=== PATIENT | female | born 1980 | race American Indian/Alaskan Native ===

== ENCOUNTER 2017-04-30 19:21 | Emergency (ER) | payer MEDICAID ==
[2017-04-30 20:24] LABS: Basophils % (Auto) 0.7 % (0.0-1.8); Eosinophils % (Auto) 2.9 % (0.0-4.3); Hematocrit 37.2 % (30.3-42.9); Hemoglobin 12.6 gm/dl (10.1-14.3); Mean Corpuscular HGB Conc 34 % (30-34); Mean Corpuscular Hemoglobin 33 pg (28-32); Mean Corpuscular Volume 96 fl (79-97); Platelet Count 308 K/mm3 (140-440); Red Blood Count 3.86 M/mm3 (3.65-5.03); Red Cell Distribution Width 13.7 % (13.2-15.2); White Blood Count 12.5 K/mm3 (4.5-11.0)
[2017-04-30 20:44] LABS: Anion Gap 16 mmol/L; Blood Urea Nitrogen 9 mg/dL (7-17); Calcium 8.5 mg/dL (8.4-10.2); Carbon Dioxide 24 mmol/L (22-30); Chloride 104.5 mmol/L (98-107); Glucose 108 mg/dL (65-100); Potassium 3.7 mmol/L (3.6-5.0); Sodium 141 mmol/L (137-145)
[2017-04-30 20:46] LABS: Bilirubin,Urine NEG (Negative); Blood,Urine NEG (Negative); Ketones,Urine NEG (Negative); Leukocyte Esterase,Urine NEG (Negative); Mucus,Urine FEW /HPF; Nitrite,Urine NEG (Negative); Protein,Urine <15 mg/dL mg/dL (Negative); WBC,Urine < 1.0 /HPF (0.0-6.0)
--- NOTE | 2017-04-30 21:02 | Emergency Department Report ---
ED Female HPI - General Chief complaint: Abdominal Pain Stated complaint: VAG DISCHARGE/ODOR Time Seen by Provider: 04/30/17 21:01 Source: patient Mode of arrival: Ambulatory Limitations: No Limitations - History of Present Illness Initial comments: Patient here complaining that she thinks her warfarin gave her an STD. She is complaining of vaginal discharge that is yellow brownish would order. Complaining of lower abdominal pain. Denies any nausea vomiting or diarrhea. Denies any back pain. Denies any vaginal bleeding. Denies any fever or chills. Denies any urinary burning frequency or urgency. She says that this started 3 days ago. Special. Was 04/14/2017. She states that she caught her boyfriend cheated but he denies having any STD. Nominal pain to pelvic area cramping on and off 6 out of 10. No [id number] medication taken. Nothing make it better and nothing makes it worse. Patient requesting to be treated for STD .patient with penicillin allergy but she said when she had allergic reaction she had itching and but had taken penicillin after that and had no problems. MD Complaint: vaginal discharge, pelvic pain, possible STD Onset/Timin -: days(s) Location: suprapubic Radiation: non-radiating Severity: moderate Severity scale (0 -10): 6 Quality: cramping Consistency: intermittent Improves with: none Worsens with: none Are you Now?: No Last Menstrual Period: 04/14/17 EDC: 01/19/18 Associated Symptoms: vaginal discharge, abdominal pain. denies: vaginal bleeding, nausea/vomiting, fever/chills, headaches, loss of appetite, dysuria, hematuria, rash, seizure, weakness - Related Data Sexually active: Yes Previous Rx's Medication Instructions Recorded Last Taken Type metroNIDAZOLE [Flagyl] 500 mg PO Q12HR #14 tab 04/30/17 Unknown Rx Allergies Allergy/AdvReac Type Severity Reaction Status Date / Time Penicillins Allergy Itching Verified 04/30/17 19:54 ED Review of Systems ROS: Stated complaint: VAG DISCHARGE/ODOR Other details as noted in HPI Comment: All other systems reviewed and negative Constitutional: denies: chills, fever Eyes: denies: eye pain, vision change ENT: denies: throat pain, congestion Respiratory: no symptoms reported Cardiovascular: denies: chest pain, palpitations, edema, syncope Gastrointestinal: abdominal pain. denies: nausea, vomiting, diarrhea, constipation, hematemesis, melena, hematochezia Genitourinary: discharge. denies: urgency, dysuria, frequency, hematuria, abnormal menses, dyspareunia Musculoskeletal: denies: back pain, joint swelling, arthralgia, myalgia Skin: denies: rash Neurological: denies: headache, weakness, numbness, paresthesias, confusion, abnormal gait, vertigo Psychiatric: denies: anxiety ED Past Medical Hx - Past Medical History Previous Medical History?: No - Surgical History Past Surgical History?: Yes Additional Surgical History: LEFT HAND / TUBAL LIGATION - Family History Family history: no significant - Social History Smoking Status: Current Every Day Smoker Substance Use Type: Alcohol Other Social History: Pt is single - Medications Home Medications: Home Medications Medication Instructions Recorded Confirmed Last Taken Type metroNIDAZOLE [Flagyl] 500 mg PO Q12HR #14 tab 04/30/17 Unknown Rx ED Physical Exam - General Limitations: No Limitations General appearance: alert, in no apparent distress - Head Head exam: Present: atraumatic, normocephalic, normal inspection - Eye Eye exam: Present: normal appearance, PERRL, EOMI Pupils: Present: normal accommodation - ENT ENT exam: Present: normal exam, normal orophraynx, mucous membranes moist - Neck Neck exam: Present: normal inspection, tenderness, full ROM. Absent: meningismus, lymphadenopathy - Respiratory Respiratory exam: Present: normal lung sounds bilaterally. Absent: respiratory distress, wheezes, rales, rhonchi, stridor, chest wall tenderness, accessory muscle use, decreased breath sounds, prolonged expiratory - Cardiovascular Cardiovascular Exam: Present: regular rate, normal rhythm, normal heart sounds. Absent: systolic murmur, diastolic murmur, S3, S4 - GI/Abdominal GI/Abdominal exam: Present: soft, normal bowel sounds. Absent: distended, tenderness, guarding, rebound, rigid, organomegaly, mass, bruit, hernia - Rectal Rectal exam: Present: normal inspection - External exam: Present: normal external exam. Absent: erythema, swelling, lesions, lacerations, ecchymosis, bleeding Speculum exam: Present: vaginal discharge, cervical discharge. Absent: erythema , vaginal bleeding, foreign body, tissue, laceration Bi-manual exam: Present: normal bi-manual exam. Absent: cervical motion tendernes, adnexal tenderness, adnexal mass, uterine enlargement, uterine tenderness - Expanded Exam Expanded Female exam: Absent: vaginal laceration, tissue present in vagina, herpetic lesions, vulvar erythema, vulvar tenderness, foreign body External exam: Present: normal Amniotic fluid: Present: none Speculum exam: Present: cervical OS closed, vaginal discharge. Absent: vaginal bleeding - Extremities Exam Extremities exam: Present: normal inspection, full ROM, normal capillary refill. Absent: tenderness, pedal edema, joint swelling, calf tenderness - Back Exam Back exam: Present: normal inspection, full ROM. Absent: tenderness, CVA tenderness (R), CVA tenderness (L), muscle spasm, paraspinal tenderness, vertebral tenderness, rash noted - Neurological Exam Neurological exam: Present: alert, oriented X3, normal gait, reflexes normal. Absent: motor sensory deficit - Psychiatric Psychiatric exam: Present: normal affect, normal mood - Skin Skin exam: Present: warm, dry, intact, normal color. Absent: rash ED Course Vital Signs 04/30/17 19:54 Temperature 99.0 F Pulse Rate 80 Respiratory 20 Rate Blood Pressure 144/92 O2 Sat by Pulse 99 Oximetry - Reevaluation(s) Reevaluation #1: 04/30/17 22:34 She received Rocephin 50 mg IM and emergency room and is azithromycin 1 g by mouth to cover gonorrhea and chlamydia. Gonorrhea and chlamydia test is pending. Wet prep positive for BV and negative for trichomoniasis and yeast infection. This was discussed with patient.. ED Medical Decision Making - Lab Data Result diagrams: 04/30/17 20:13 04/30/17 20:13 Lab Results 04/30/17 04/30/17 04/30/17 Range/Units 20:13 20:13 20:13 WBC 12.5 H (4.5-11.0) K/mm3 RBC 3.86 (3.65-5.03) M/mm3 Hgb 12.6 (10.1-14.3) gm/dl Hct 37.2 (30.3-42.9) % MCV 96 (79-97) fl MCH 33 H (28-32) pg MCHC 34 (30-34) % RDW 13.7 (13.2-15.2) % Plt Count 308 (140-440) K/mm3 Lymph % (Auto) 35.6 H (13.4-35.0) % [place] % (Auto) 10.5 H (0.0-7.3) % Eos % (Auto) 2.9 (0.0-4.3) % Baso % (Auto) 0.7 (0.0-1.8) % Lymph # 4.4 (1.2-5.4) K/mm3 [place] # 1.3 H (0.0-0.8) K/mm3 Eos # 0.4 (0.0-0.4) K/mm3 Baso # 0.1 (0.0-0.1) K/mm3 Seg Neutrophils % 50.3 (40.0-70.0) % Seg Neutrophils # 6.3 (1.8-7.7) K/mm3 Sodium 141 (137-145) mmol/L Potassium 3.7 (3.6-5.0) mmol/L Chloride 104.5 (98-107) mmol/L Carbon Dioxide 24 (22-30) mmol/L Anion Gap 16 mmol/L BUN 9 (7-17) mg/dL Creatinine 0.5 L (0.7-1.2) mg/dL Estimated GFR > 60 ml/min BUN/Creatinine Ratio 18.00 % Glucose 108 H (65-100) mg/dL Calcium 8.5 (8.4-10.2) mg/dL HCG, Qual Negative (Negative) Urine Color (Yellow) Urine Turbidity (Clear) Urine pH (5.0-7.0) Ur Specific [place] (1.003-1.030) Urine Protein (Negative) mg/dL Urine Glucose (UA) (Negative) mg/dL Urine Ketones (Negative) mg/dL Urine Blood (Negative) Urine Nitrite (Negative) Urine Bilirubin (Negative) Urine Urobilinogen (<2.0) mg/dL Ur Leukocyte Esterase (Negative) Urine WBC (Auto) (0.0-6.0) /HPF Urine RBC (Auto) (0.0-6.0) /HPF U Epithel Cells (Auto) (0-13.0) /HPF Calcium Oxalate Crystal Urine Mucus /HPF 04/30/17 Range/Units 20:25 WBC (4.5-11.0) K/mm3 RBC (3.65-5.03) M/mm3 Hgb (10.1-14.3) gm/dl Hct (30.3-42.9) % MCV (79-97) fl MCH (28-32) pg MCHC (30-34) % RDW (13.2-15.2) % Plt Count (140-440) K/mm3 Lymph % (Auto) (13.4-35.0) % [place] % (Auto) (0.0-7.3) % Eos % (Auto) (0.0-4.3) % Baso % (Auto) (0.0-1.8) % Lymph # (1.2-5.4) K/mm3 [place] # (0.0-0.8) K/mm3 Eos # (0.0-0.4) K/mm3 Baso # (0.0-0.1) K/mm3 Seg Neutrophils % (40.0-70.0) % Seg Neutrophils # (1.8-7.7) K/mm3 Sodium (137-145) mmol/L Potassium (3.6-5.0) mmol/L Chloride (98-107) mmol/L Carbon Dioxide (22-30) mmol/L Anion Gap mmol/L BUN (7-17) mg/dL Creatinine (0.7-1.2) mg/dL Estimated GFR ml/min BUN/Creatinine Ratio % Glucose (65-100) mg/dL Calcium (8.4-10.2) mg/dL HCG, Qual (Negative) Urine Color Yellow (Yellow) Urine Turbidity Clear (Clear) Urine pH 5.0 (5.0-7.0) Ur Specific [place] 1.030 (1.003-1.030) Urine Protein <15 mg/dl (Negative) mg/dL Urine Glucose (UA) Neg (Negative) mg/dL Urine Ketones Neg (Negative) mg/dL Urine Blood Neg (Negative) Urine Nitrite Neg (Negative) Urine Bilirubin Neg (Negative) Urine Urobilinogen 2.0 (<2.0) mg/dL Ur Leukocyte Esterase Neg (Negative) Urine WBC (Auto) < 1.0 (0.0-6.0) /HPF Urine RBC (Auto) 1.0 (0.0-6.0) /HPF U Epithel Cells (Auto) 2.0 (0-13.0) /HPF Calcium Oxalate Crystal 3+ Urine Mucus Few /HPF wet Prep positive BV, negative Trichomonas and negative yeast cells Gonorrhea and chlamydia test is pending - Medical Decision Making ED course: Sent here reporting abnormal vaginal discharge and requests STD testing and treatment. She caught her boyfriend she then and he told her that he was not having any symptoms that she started having discharge that has a bad odor. He was mild elevation in white count otherwise stable, BMP is stable, wet prep positive for bacterial vaginosis and negative for Trichomonas and yeast cell. Urinalysis negative for infection. Bimanual exam without any CMT or adnexal tenderness. Pelvic exam with malodorous vaginal discharge otherwise normal. Abdominal exam is normal. Discussed with patient that she has bacterial vaginosis and will be treated with Flagyl. I also discussed with her that I'll treat her with Rocephin for gonorrhea and azithromycin for chlamydia and her gonorrhea and chlamydia test takes approximately 5 days ago they will call her results. test was negative. Patient was treated with Rocephin 250 mg IM and azithromycin 1 g by mouth with any adverse reaction. She was understanding the discharge diagnosis and treatment plan and she was instructed that she is to follow-up with her [employer] [facility] or if she does not have one to follow-up with [facility] for repeat STD tested in 7- 10 days. Education STD and safe sex. Patient douches so I told her to avoid dilution as this can cause bacterial vaginosis Laboratory: See lab section for results of lab tests. Assessment/plan 1. Pelvic pain 2. Abnormal vaginal discharge 3. Bacterial vaginosis 4 concern for STD with female without diagnosis-treated for gonorrhea and chlamydia in 5. Leukocytosis Follow-up with your [facility] or [facility] for repeat STD testing in 7-10 days. She given prescription with explanation for Flagyl. She was instructed not to drink all call while in Flagyl as this can react negatively with medication and cause her to have nausea and vomiting. Critical care attestation.: If time is entered above; I have spent that time in minutes in the direct care of this critically ill patient, excluding procedure time. ED Disposition Clinical Impression: Pelvic pain, Abnormal urogenital discharge, Concern about STD in female without diagnosis, Bacterial vaginosis Leukocytosis Qualifiers: Leukocytosis type: unspecified Qualified Code(s): D72.829 - Elevated white blood cell count, unspecified Disposition: DC-01 TO HOME OR SELFCARE Is pt being admited?: No Does the pt Need Aspirin: No Condition: Stable Instructions: Abdominal Pain (ED), Bacterial Vaginosis (ED), Leukocytosis (ED) , Safe Sex (ED), Sexually Transmitted Diseases (ED) Additional Instructions: Please practice safe sex Refrain from having sexual activity for 2 weeks Follow up with OBGYN or Health department for repeat std test in 7-10 days refrain form drinking alcohol for 2 weeks. Prescriptions: metroNIDAZOLE [Flagyl] 500 mg PO Q12HR #14 tab Referrals: LONNIE WIGGINS MD [Staff Physician] - 7-10 days [facility] [Outside] - 7-10 days Forms: STI Treatment and Prevention, Accompanied Note, Work/School Release Form (ED)
[2017-04-30] MEDS ORDERED: XYLOCAINE 1% MPF 5 mL INFILTRATI ONE (22:25)
[2017-04-30] MEDS ORDERED: ROCEPHIN IM ONE (22:25)
[2017-04-30] MEDS ORDERED: ZITHROMAX PO ONE (22:25)
[2017-04-30 23:03] VITALS: BP 139/88
== END 2017-04-30 23:03 | disposition home or self-care (01) ==
LOC: ED 19:21
DX: N89.8 Other specified noninflammatory disorders of vagina (principal); R10.2 Pelvic and perineal pain; D72.829 Elevated white blood cell count, unspecified; N76.0 Acute vaginitis; F17.200 Nicotine dependence, unspecified, uncomplicated; Z88.0 Allergy status to penicillin
CPT/HCPCS: 36415; 80048; 81001; 84703; 85025; 87210; 87591; 96372; 99284; J0696

== ENCOUNTER 2017-08-30 04:00 | Inpatient (IN) | payer MEDICAID ==
[2017-08-30] MEDS ORDERED: ASPIRIN PO ONE ×2 (05:12→12:54)
[2017-08-30 05:54] LABS: Basophils # (Auto) 0.1 K/mm3 (0.0-0.1); Basophils % (Auto) 0.7 % (0.0-1.8); Eosinophils # (Auto) 0.4 K/mm3 (0.0-0.4); Hematocrit 37.3 % (30.3-42.9); Hemoglobin 12.6 gm/dl (10.1-14.3); Lymphocytes # (Auto) 2.9 K/mm3 (1.2-5.4); Lymphocytes % (Auto) 23.7 % (13.4-35.0); Mean Corpuscular HGB Conc 34 % (30-34); Mean Corpuscular Hemoglobin 33 pg (28-32); Mean Corpuscular Volume 98 fl (79-97); Monocytes # (Auto) 1.3 K/mm3 (0.0-0.8); Monocytes % (Auto) 10.7 % (0.0-7.3); Platelet Count 282 K/mm3 (140-440); Red Blood Count 3.79 M/mm3 (3.65-5.03); Red Cell Distribution Width 13.4 % (13.2-15.2)
[2017-08-30 06:19] LABS: BUN/Creatinine Ratio 20; Blood Urea Nitrogen 12 mg/dL (7-17); Hemolysis Index 8
[2017-08-30 07:36] LABS: Bilirubin,Urine NEG (Negative); Blood,Urine NEG (Negative); Color,Urine Yellow (Yellow); Mucus,Urine FEW /HPF; Nitrite,Urine NEG (Negative); Protein,Urine <15 mg/dL mg/dL (Negative); Urobilinogen,Urine < 2.0 mg/dL (<2.0)
[2017-08-30] MEDS ORDERED: NACL ONE (11:43)
--- NOTE | 2017-08-30 11:45 | Emergency Department Report ---
HPI - General Chief Complaint: Chest Pain Time Seen by Provider: 08/30/17 11:23 - HPI HPI: Room 6 The patient is a 37-year-old female presenting with chief complaint of chest pain. The patient states yesterday she began "not feeling good" which includes sore throat, ears popping and right-sided chest pain. Patient describes his chest pain is sharp and feeling as though something is poking her. Patient does admit to pleurisy. Patient admits to shortness of breath, nausea/vomiting and diaphoresis. The patient states she developed diarrhea this morning. Patient admits to fever 101F. Patient says she has had a cough that is nonproductive for one day. The patient states she's never had a stress test or cardiac catheterization Location: Chest, see above Duration: 2 days Quality: Poking Severity: Moderate Modifying factors: [see above] Context: [see above] Mode of transportation: Unknown ED Past Medical Hx - Past Medical History Previous Medical History?: No - Surgical History Past Surgical History?: Yes Additional Surgical History: LEFT HAND / TUBAL LIGATION - Family History Family history: no significant - Social History Smoking Status: Current Some Day Smoker (1/3 pack per day) Substance Use Type: None (denies illicit drug use), Alcohol (occasional) - Medications Home Medications: Home Medications Medication Instructions Recorded Confirmed Last Taken Type metroNIDAZOLE [Flagyl] 500 mg PO Q12HR #14 tab 04/30/17 Unknown Rx ED Review of Systems ROS: Stated complaint: CHEST PAIN Other details as noted in HPI Constitutional: diaphoresis, fever ENT: ear pain Respiratory: cough, shortness of breath Cardiovascular: chest pain Gastrointestinal: nausea, vomiting Physical Exam - Physical Exam Vital Signs: Vital Signs 08/30/17 08/30/17 08/30/17 05:08 11:03 11:23 Temperature 98.4 F 98.4 F Pulse Rate 89 86 Respiratory 18 20 16 Rate Blood Pressure 120/79 136/80 Blood Pressure [Left] O2 Sat by Pulse 100 99 Oximetry 08/30/17 08/30/17 11:25 11:26 Temperature Pulse Rate 91 H 91 H Respiratory 16 Rate Blood Pressure Blood Pressure 124/71 [Left] O2 Sat by Pulse 98 Oximetry Physical Exam: GENERAL: The patient is well-developed well-nourished female lying on stretcher not appearing to be in acute distress. [] HEENT: Normocephalic. Atraumatic. Extraocular motions are intact. Patient has moist mucous membranes. Oropharynx clear. Left TM margin slightly erythematous. Right TM clear NECK: Supple. Trachea midline CHEST/LUNGS: Clear to auscultation. There is no respiratory distress noted. HEART/CARDIOVASCULAR: Regular. There is no tachycardia. There is no gallop rub or murmur. ABDOMEN: Abdomen is soft, nontender. Patient has normal bowel sounds. There is no abdominal distention. SKIN: There is no rash. There is no edema. There is no diaphoresis. NEURO: The patient is awake, alert, and oriented. The patient is cooperative. The patient has normal speech MUSCULOSKELETAL: There is no evidence of acute injury. ED Course Vital Signs 08/30/17 08/30/17 08/30/17 05:08 11:03 11:23 Temperature 98.4 F 98.4 F Pulse Rate 89 86 Respiratory 18 20 16 Rate Blood Pressure 120/79 136/80 Blood Pressure [Left] O2 Sat by Pulse 100 99 Oximetry 08/30/17 08/30/17 11:25 11:26 Temperature Pulse Rate 91 H 91 H Respiratory 16 Rate Blood Pressure Blood Pressure 124/71 [Left] O2 Sat by Pulse 98 Oximetry ED Medical Decision Making - Lab Data Result diagrams: 08/30/17 05:21 08/30/17 05:21 Laboratory Tests 08/30/17 08/30/17 08/30/17 05:21 05:21 05:21 WBC 12.2 H RBC 3.79 Hgb 12.6 Hct 37.3 MCV 98 H MCH 33 H MCHC 34 RDW 13.4 Plt Count 282 Lymph % (Auto) 23.7 [place] % (Auto) 10.7 H Eos % (Auto) 3.0 Baso % (Auto) 0.7 Lymph # 2.9 [place] # 1.3 H Eos # 0.4 Baso # 0.1 Seg Neutrophils % 61.9 Seg Neutrophils # 7.6 Sodium 140 Potassium 4.5 Chloride 104.7 Carbon Dioxide 22 Anion Gap 18 BUN 12 Creatinine 0.6 L Estimated GFR > 60 BUN/Creatinine Ratio 20 Glucose 98 Calcium 9.0 Troponin T < 0.010 HCG, Qual Negative Urine Color Urine Turbidity Urine pH Ur Specific [place] Urine Protein Urine Glucose (UA) Urine Ketones Urine Blood Urine Nitrite Urine Bilirubin Urine Urobilinogen Ur Leukocyte Esterase Urine WBC (Auto) Urine RBC (Auto) U Epithel Cells (Auto) Urine Mucus 08/30/17 08/30/17 08/30/17 07:54 11:02 Unknown WBC RBC Hgb Hct MCV MCH MCHC RDW Plt Count Lymph % (Auto) [place] % (Auto) Eos % (Auto) Baso % (Auto) Lymph # [place] # Eos # Baso # Seg Neutrophils % Seg Neutrophils # Sodium Potassium Chloride Carbon Dioxide Anion Gap BUN Creatinine Estimated GFR BUN/Creatinine Ratio Glucose Calcium Troponin T < 0.010 < 0.010 HCG, Qual Urine Color Yellow Urine Turbidity Clear Urine pH 6.0 Ur Specific [place] 1.027 Urine Protein <15 mg/dl Urine Glucose (UA) Neg Urine Ketones Neg Urine Blood Neg Urine Nitrite Neg Urine Bilirubin Neg Urine Urobilinogen < 2.0 Ur Leukocyte Esterase Neg Urine WBC (Auto) 2.0 Urine RBC (Auto) 2.0 U Epithel Cells (Auto) 3.0 Urine Mucus Few - EKG Data -: EKG Interpreted by Me EKG shows normal: sinus rhythm Rate: normal - EKG Data When compared to previous EKG there are: previous EKG unavailable Interpretation: nonspecific ST-T wave [place] (T-wave inversion in lead 3 and V2) - Radiology Data Radiology results: report reviewed (CT chest), image reviewed (CT chest) CTA chest: History: Pleurisy, shortness of breath. Findings: No evidence of aneurysm or pulmonary embolism. No mediastinal mass or adenopathy. No pleural or pericardial effusion. Normal lung parenchyma. Impression: No evidence of pulmonary embolism. No acute changes. Transcribed By: PTP Dictated By: CELESTINO SYED MD Electronically Authenticated By: CELESTINO SYED MD Signed Date/Time: 08/30/171214 DD/ 13 TD/TT: 08/30/171214 - Differential Diagnosis pneumonia, PE, ACS, pericarditis Critical care attestation.: If time is entered above; I have spent that time in minutes in the direct care of this critically ill patient, excluding procedure time. ED Disposition Clinical Impression: Chest pain Disposition: DC-09 OP ADMIT IP TO THIS HOSP Is pt being admited?: Yes Does the pt Need Aspirin: Yes Condition: Fair Instructions: Chest Pain (ED) Referrals: NNEKA RICHARDSON MD [Primary Care Provider] - 3-5 Days Time of Disposition: 12:57 (hospitalist paged (Dr Jerome))
--- NOTE | 2017-08-30 12:32 | Cat Scan Report ---
CTA chest: History: Pleurisy, shortness of breath. Findings: No evidence of aneurysm or pulmonary embolism. No mediastinal mass or adenopathy. No pleural or pericardial effusion. Normal lung parenchyma. Impression: No evidence of pulmonary embolism. No acute changes.
[2017-08-30] MEDS ORDERED: MORPHINE IV ONE (12:54)
[2017-08-30] MEDS ORDERED: NITRO-BID 2% TP ONE (12:54)
[2017-08-30] MEDS ORDERED: ZOFRAN IV ONE (12:54)
[2017-08-30] MEDS ORDERED: TYLENOL PO ONE (15:47)
[2017-08-30] MEDS ORDERED: TYLENOL ONE (15:50)
[2017-08-30] MEDS ORDERED: MILK OF MAGNESIA PO PRN (17:59)
[2017-08-30] MEDS ORDERED: ZOFRAN IV PRN (17:59)
[2017-08-30] MEDS ORDERED: DULCOLAX PR PRN (17:59)
[2017-08-30] MEDS ORDERED: TYLENOL PO PRN (17:59)
--- NOTE | 2017-08-30 17:59 | History and Physical Report ---
History of Present Illness Date of examination: 08/30/17 Date of admission: 08/30/17 Chief complaint: CC: L side Chest pain Cough 3 days History of present illness: [place]: The patient is a 37-year-old female presenting with chief complaint of chest pain. The patient states yesterday she began "not feeling good" which includes sore throat, ears popping and right-sided chest pain. Patient describes her chest pain as sharp and feeling as though something is poking her. Chest pain not radiating.No Diaphoresis/palpitations. Patient admits to shortness of breath, nausea/vomiting and diaphoresis. The patient states she developed diarrhea this morning. Patient admits to fever 101F. Patient says she has had a cough that is nonproductive for one day. The patient states she's never had a stress test or cardiac catheterization Past Medical History Previous Medical History?: No - Surgical History Past Surgical History?: Yes Additional Surgical History: LEFT HAND / TUBAL LIGATION - Family History Family history: no significant - Social History Smoking Status: Current Some Day Smoker (1/3 pack per day) Substance Use Type: None (denies illicit drug use), Alcohol (occasional) - Medications Home Medications: Home Medications Medication Instructions Recorded Confirmed Last Taken Type metroNIDAZOLE [Flagyl] 500 mg PO Q12HR #14 tab 04/30/17 Unknown Rx Review of Systems Stated complaint: CHEST PAIN Other details as noted in HPI Constitutional: diaphoresis, fever ENT: ear pain Respiratory: cough, shortness of breath Cardiovascular: chest pain Gastrointestinal: nausea, vomiting Medications and Allergies Allergies Allergy/AdvReac Type Severity Reaction Status Date / Time Penicillins Allergy Itching Verified 04/30/17 19:54 Home Medications Medication Instructions Recorded Confirmed Last Taken Type metroNIDAZOLE [Flagyl] 500 mg PO Q12HR #14 tab 04/30/17 Unknown Rx Exam - Constitutional Vitals: Temp Pulse Resp BP Pulse Ox 98.4 F 80 12 129/86 100 08/30/17 11:03 08/30/17 13:32 08/30/17 13:01 08/30/17 13:32 08/30/17 13:01 General appearance: Present: no acute distress, well-nourished - EENT Eyes: Present: PERRL ENT: hearing intact, clear oral mucosa - Neck Neck: Present: supple, normal ROM - Respiratory Respiratory effort: normal Respiratory: bilateral: CTA - Cardiovascular Heart rate: 80 Rhythm: regular Heart Sounds: Present: S1 & S2. Absent: rub, click - Extremities Extremities: no ischemia, pulses intact, pulses symmetrical, No edema Peripheral Pulses: within normal limits - Abdominal General gastrointestinal: Present: soft, non-tender, non-distended, normal bowel sounds Female genitourinary: Present: normal - Rectal Rectal Exam: deferred - Integumentary Integumentary: Present: clear, warm, dry - Musculoskeletal Musculoskeletal: gait normal, strength equal bilaterally - Psychiatric Psychiatric: appropriate mood/affect, intact judgment & insight - Neurologic Neurologic: CNII-XII intact, moves all extremities - Allied Health Allied health notes reviewed: nursing, case management Results - Labs CBC & Chem 7: 08/30/17 05:21 08/30/17 05:21 Labs: Laboratory Last Values WBC 12.2 K/mm3 (4.5-11.0) H 08/30/17 05:21 RBC 3.79 M/mm3 (3.65-5.03) 08/30/17 05:21 Hgb 12.6 gm/dl (10.1-14.3) 08/30/17 05:21 Hct 37.3 % (30.3-42.9) 08/30/17 05:21 MCV 98 fl (79-97) H 08/30/17 05:21 MCH 33 pg (28-32) H 08/30/17 05:21 MCHC 34 % (30-34) 08/30/17 05:21 RDW 13.4 % (13.2-15.2) 08/30/17 05:21 Plt Count 282 K/mm3 (140-440) 08/30/17 05:21 Lymph % (Auto) 23.7 % (13.4-35.0) 08/30/17 05:21 [place] % (Auto) 10.7 % (0.0-7.3) H 08/30/17 05:21 Eos % (Auto) 3.0 % (0.0-4.3) 08/30/17 05:21 Baso % (Auto) 0.7 % (0.0-1.8) 08/30/17 05:21 Lymph # 2.9 K/mm3 (1.2-5.4) 08/30/17 05:21 [place] # 1.3 K/mm3 (0.0-0.8) H 08/30/17 05:21 Eos # 0.4 K/mm3 (0.0-0.4) 08/30/17 05:21 Baso # 0.1 K/mm3 (0.0-0.1) 08/30/17 05:21 Seg Neutrophils % 61.9 % (40.0-70.0) 08/30/17 05:21 Seg Neutrophils # 7.6 K/mm3 (1.8-7.7) 08/30/17 05:21 Sodium 140 mmol/L (137-145) 08/30/17 05:21 Potassium 4.5 mmol/L (3.6-5.0) 08/30/17 05:21 Chloride 104.7 mmol/L (98-107) 08/30/17 05:21 Carbon Dioxide 22 mmol/L (22-30) 08/30/17 05:21 Anion Gap 18 mmol/L 08/30/17 05:21 BUN 12 mg/dL (7-17) 08/30/17 05:21 Creatinine 0.6 mg/dL (0.7-1.2) L 08/30/17 05:21 Estimated GFR > 60 ml/min 08/30/17 05:21 BUN/Creatinine Ratio 20 % 08/30/17 05:21 Glucose 98 mg/dL (65-100) 08/30/17 05:21 Calcium 9.0 mg/dL (8.4-10.2) 08/30/17 05:21 Troponin T < 0.010 ng/mL (0.00-0.029) 08/30/17 11:02 HCG, Qual Negative (Negative) 08/30/17 05:21 Urine Color Yellow (Yellow) 08/30/17 Unknown Urine Turbidity Clear (Clear) 08/30/17 Unknown Urine pH 6.0 (5.0-7.0) 08/30/17 Unknown Ur Specific [place] 1.027 (1.003-1.030) 08/30/17 Unknown Urine Protein <15 mg/dl mg/dL (Negative) 08/30/17 Unknown Urine Glucose (UA) Neg mg/dL (Negative) 08/30/17 Unknown Urine Ketones Neg mg/dL (Negative) 08/30/17 Unknown Urine Blood Neg (Negative) 08/30/17 Unknown Urine Nitrite Neg (Negative) 08/30/17 Unknown Urine Bilirubin Neg (Negative) 08/30/17 Unknown Urine Urobilinogen < 2.0 mg/dL (<2.0) 08/30/17 Unknown Ur Leukocyte Esterase Neg (Negative) 08/30/17 Unknown Urine WBC (Auto) 2.0 /HPF (0.0-6.0) 08/30/17 Unknown Urine RBC (Auto) 2.0 /HPF (0.0-6.0) 08/30/17 Unknown U Epithel Cells (Auto) 3.0 /HPF (0-13.0) 08/30/17 Unknown Urine Mucus Few /HPF 08/30/17 Unknown - Imaging and Cardiology EKG: report reviewed Chest x-ray: report reviewed Assessment and Plan Advance Directives: Yes (FC) VTE prophylaxis?: Chemical Plan of care discussed with patient/family: Yes - Patient Problems (1) Chest pain Current Visit: Yes Status: Acute Qualifiers: Chest pain type: unspecified Qualified Code(s): R07.9 - Chest pain, unspecified Plan to address problem: Chest pain w/u.Serial cardiac enzymes and Lexiscan in Am DDX of reflux esophagitis /Costochondritis to be considered (2) Pneumonia Current Visit: Yes Status: Acute Qualifiers: Lung location: unspecified part of lung Plan to address problem: Clinical picture suggestive of Early Pneumonia. Started on IV Levaquin (3) Obesity Current Visit: Yes Status: Chronic Qualifiers: Obesity type: due to excess calories Body mass index: BMI 40.0-44.9 Plan to address problem: Counselled (4) DVT prophylaxis Current Visit: Yes Status: Acute Plan to address problem: on Lovenoxc
[2017-08-30 19:06] LABS: Creatine Kinase MB 1.5 ng/mL (0.0-4.0)
[2017-08-30] MEDS ORDERED: NACL 0.9% 1000 ML 1,000 ML IV SCH (21:30)
[2017-08-30] MEDS: AMBIEN PO PRN (23:50)
[2017-08-30] MEDS: PERCOCET 5/325 PO PRN (23:50)
[2017-08-31 01:48] LABS: Creatine Kinase MB 1.4 ng/mL (0.0-4.0)
[2017-08-31 06:16] LABS: Basophils % (Auto) 0.4 % (0.0-1.8); Eosinophils # (Auto) 0.4 K/mm3 (0.0-0.4); Eosinophils % (Auto) 3.7 % (0.0-4.3); Hemoglobin 12.2 gm/dl (10.1-14.3); Lymphocytes # (Auto) 2.6 K/mm3 (1.2-5.4); Lymphocytes % (Auto) 24.8 % (13.4-35.0); Mean Corpuscular HGB Conc 34 % (30-34); Mean Corpuscular Hemoglobin 33 pg (28-32); Mean Corpuscular Volume 98 fl (79-97); Monocytes # (Auto) 1.1 K/mm3 (0.0-0.8); Monocytes % (Auto) 10.5 % (0.0-7.3); Platelet Count 279 K/mm3 (140-440); Red Blood Count 3.69 M/mm3 (3.65-5.03); Red Cell Distribution Width 13.2 % (13.2-15.2)
[2017-08-31 06:33] LABS: Alanine Aminotransferase 10 units/L (7-56); Albumin 3.2 g/dL (3.9-5); BUN/Creatinine Ratio 17; Blood Urea Nitrogen 10 mg/dL (7-17); Calcium 8.1 mg/dL (8.4-10.2); Hemolysis Index 5
[2017-08-31 06:34] LABS: Creatine Kinase MB 1.3 ng/mL (0.0-4.0)
[2017-08-31] MEDS: LEVAQUIN 750MG/150ML 750 MG/150 ML BAG IV SCH (08:25)
[2017-08-31] MEDS: PERCOCET 5/325 PO PRN ×2 (08:41→19:48)
[2017-08-31] MEDS: LOVENOX SUB-Q SCH (11:00)
[2017-08-31] MEDS ORDERED: MORPHINE IV ONE (13:55)
--- NOTE | 2017-08-31 14:19 | Discharge Summary ---
Providers - Providers Date of Admission: 08/30/17 18:30 Date of discharge: 09/01/17 Attending physician: BERNY TRUONG MD Primary care physician: NNEKA RICHARDSON Hospitalization Reason for admission: Chest pain, SIRS Condition: Stable Pertinent studies: Stress test negative for ischemia CTA negative for PE or any acute changes Hospital course: The patient is a 37-year-old female presenting with chief complaint of chest pain. The patient states yesterday she began "not feeling good" which includes sore throat, ears popping and right-sided chest pain. Patient describes her chest pain as sharp and feeling as though something is poking her. Chest pain not radiating.No Diaphoresis/palpitations. Patient admits to shortness of breath, nausea/vomiting and diaphoresis. The patient states she developed diarrhea this morning. Patient admits to fever 101F. Patient says she has had a cough that is nonproductive for one day. The patient states she's never had a stress test or cardiac catheterization. Patient was admitted to the floor and initially she was treated with IV antibiotic and pain control. Stress test was done and negative for ischemia. CTA was done and negative for PE or an acute changes. Patient's chest pain subsided. Patient was hemodynamically stable at the time of discharge. patient discharged home with the advice to have follow up with PCP. Disposition: - TO HOME OR SELFCARE Time spent for discharge: 31 minutes - Discharge Diagnoses (1) Pneumonitis Status: Acute (2) Chest pain Status: Acute Qualifiers: Chest pain type: unspecified Qualified Code(s): R07.9 - Chest pain, unspecified (3) Obesity Status: Chronic Qualifiers: Obesity type: due to excess calories Body mass index: BMI 40.0-44.9 Core Measure Documentation - Palliative Care Palliative Care/ Comfort Measures: Not Applicable - Core Measures Any of the following diagnoses?: none Exam - Physical Exam Narrative exam: Not in cardiopulmonary distress. The patient appeared well nourished and normally developed. Vital signs as documented. Head exam is unremarkable. No scleral icterus . Neck is without jugular venous distension, thyromegaly, or carotid bruits. Lungs are clear to auscultation. Cardiac exam reveals regular rate and Rhythm. First and second heart sounds normal. No murmurs, rubs or gallops. Abdominal exam reveals normal bowel sounds, no masses, no organomegaly and no aortic enlargement. Extremities are nonedematous and both femoral and pedal pulses are normal. GAMEMASTER: Alert and oriented 3. No focal weakness. - Constitutional Vitals: Temp Pulse Resp BP Pulse Ox 99.3 F 97 H 18 114/73 96 08/31/17 08:58 08/31/17 08:58 08/31/17 08:58 08/31/17 08:58 08/31/17 08:58 Plan Activity: no restrictions Weight Bearing Status: Full Weight Bearing Diet: low cholesterol Follow up with: NNEKA RICHARDSON MD [Primary Care Provider] - 7 Days Forms: Work/School Release Form
--- NOTE | 2017-08-31 16:59 | Progress Note ---
Assessment and Plan Assessment and plan: 37-year-old -[place] female with past medical history significant for obesity, presented to the emergency department with complaints of not feeling well, fever, cough, sore throat and chest pain. Chest pain - Cardiac enzymes are negative, EKG no STEMI - Stress test was ordered and will be done tomorrow pneumonitis - Patient is on Levaquin DVT prophylaxis Disposition - Possible discharge tomorrow after stress test. - Patient Problems (1) Pneumonitis Current Visit: Yes Status: Acute (2) Chest pain Current Visit: Yes Status: Acute Qualifiers: Chest pain type: unspecified Qualified Code(s): R07.9 - Chest pain, unspecified (3) Obesity Current Visit: Yes Status: Chronic Qualifiers: Obesity type: due to excess calories Body mass index: BMI 40.0-44.9 History Interval history: Patient was seen and evaluated, she is still complaining chest pain. Hospitalist Physical - Physical exam Narrative exam: Not in cardiopulmonary distress. The patient appeared well nourished and normally developed. Vital signs as documented. Head exam is unremarkable. No scleral icterus . Neck is without jugular venous distension, thyromegaly, or carotid bruits. Lungs are clear to auscultation. Cardiac exam reveals regular rate and Rhythm. First and second heart sounds normal. No murmurs, rubs or gallops. Abdominal exam reveals normal bowel sounds, no masses, no organomegaly and no aortic enlargement. Extremities are nonedematous and both femoral and pedal pulses are normal. 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 No focal weakness. - Constitutional Vitals: Temp Pulse Resp BP Pulse Ox 99.3 F 92 H 18 107/59 97 08/31/17 08:58 08/31/17 13:22 08/31/17 08:58 08/31/17 13:22 08/31/17 13:22 General appearance: Present: no acute distress, well-nourished Results - Labs CBC & Chem 7: 08/31/17 05:16 08/31/17 05:16 Labs: Laboratory Last Values WBC 10.6 K/mm3 (4.5-11.0) 08/31/17 05:16 RBC 3.69 M/mm3 (3.65-5.03) 08/31/17 05:16 Hgb 12.2 gm/dl (10.1-14.3) 08/31/17 05:16 Hct 36.0 % (30.3-42.9) 08/31/17 05:16 MCV 98 fl (79-97) H 08/31/17 05:16 MCH 33 pg (28-32) H 08/31/17 05:16 MCHC 34 % (30-34) 08/31/17 05:16 RDW 13.2 % (13.2-15.2) 08/31/17 05:16 Plt Count 279 K/mm3 (140-440) 08/31/17 05:16 Lymph % (Auto) 24.8 % (13.4-35.0) 08/31/17 05:16 [place] % (Auto) 10.5 % (0.0-7.3) H 08/31/17 05:16 Eos % (Auto) 3.7 % (0.0-4.3) 08/31/17 05:16 Baso % (Auto) 0.4 % (0.0-1.8) 08/31/17 05:16 Lymph # 2.6 K/mm3 (1.2-5.4) 08/31/17 05:16 [place] # 1.1 K/mm3 (0.0-0.8) H 08/31/17 05:16 Eos # 0.4 K/mm3 (0.0-0.4) 08/31/17 05:16 Baso # 0.0 K/mm3 (0.0-0.1) 08/31/17 05:16 Seg Neutrophils % 60.6 % (40.0-70.0) 08/31/17 05:16 Seg Neutrophils # 6.4 K/mm3 (1.8-7.7) 08/31/17 05:16 Sodium 136 mmol/L (137-145) L 08/31/17 05:16 Potassium 4.1 mmol/L (3.6-5.0) 08/31/17 05:16 Chloride 101.8 mmol/L (98-107) 08/31/17 05:16 Carbon Dioxide 23 mmol/L (22-30) 08/31/17 05:16 Anion Gap 15 mmol/L 08/31/17 05:16 BUN 10 mg/dL (7-17) 08/31/17 05:16 Creatinine 0.6 mg/dL (0.7-1.2) L 08/31/17 05:16 Estimated GFR > 60 ml/min 08/31/17 05:16 BUN/Creatinine Ratio 17 % 08/31/17 05:16 Glucose 83 mg/dL (65-100) 08/31/17 05:16 Hemoglobin A1c 4.9 % (4-6) 08/30/17 18:14 Calcium 8.1 mg/dL (8.4-10.2) L 08/31/17 05:16 Total Bilirubin 0.40 mg/dL (0.1-1.2) 08/31/17 05:16 AST 12 units/L (5-40) 08/31/17 05:16 ALT 10 units/L (7-56) 08/31/17 05:16 Alkaline Phosphatase 64 units/L (35-129) 08/31/17 05:16 Total Creatine Kinase 91 units/L (30-135) 08/31/17 05:16 CK-MB (CK-2) 1.3 ng/mL (0.0-4.0) 08/31/17 05:16 CK-MB (CK-2) Rel Index 1.4 (0-4) 08/31/17 05:16 Troponin T < 0.010 ng/mL (0.00-0.029) 08/31/17 05:16 Total Protein 6.3 g/dL (6.3-8.2) 08/31/17 05:16 Albumin 3.2 g/dL (3.9-5) L 08/31/17 05:16 Albumin/Globulin Ratio 1.0 % 08/31/17 05:16 HCG, Qual Negative (Negative) 08/30/17 05:21 Urine Color Yellow (Yellow) 08/30/17 Unknown Urine Turbidity Clear (Clear) 08/30/17 Unknown Urine pH 6.0 (5.0-7.0) 08/30/17 Unknown Ur Specific [place] 1.027 (1.003-1.030) 08/30/17 Unknown Urine Protein <15 mg/dl mg/dL (Negative) 08/30/17 Unknown Urine Glucose (UA) Neg mg/dL (Negative) 08/30/17 Unknown Urine Ketones Neg mg/dL (Negative) 08/30/17 Unknown Urine Blood Neg (Negative) 08/30/17 Unknown Urine Nitrite Neg (Negative) 08/30/17 Unknown Urine Bilirubin Neg (Negative) 08/30/17 Unknown Urine Urobilinogen < 2.0 mg/dL (<2.0) 08/30/17 Unknown Ur Leukocyte Esterase Neg (Negative) 08/30/17 Unknown Urine WBC (Auto) 2.0 /HPF (0.0-6.0) 08/30/17 Unknown Urine RBC (Auto) 2.0 /HPF (0.0-6.0) 08/30/17 Unknown U Epithel Cells (Auto) 3.0 /HPF (0-13.0) 08/30/17 Unknown Urine Mucus Few /HPF 08/30/17 Unknown
[2017-08-31] MEDS: AMBIEN PO PRN (21:14)
[2017-09-01] MEDS: LEVAQUIN 750MG/150ML 750 MG/150 ML BAG IV SCH (06:24)
[2017-09-01 06:34] LABS: BUN/Creatinine Ratio 20; Blood Urea Nitrogen 12 mg/dL (7-17); Calcium 8.7 mg/dL (8.4-10.2); Hemolysis Index 5
[2017-09-01] MEDS: LOVENOX SUB-Q SCH (10:15)
--- NOTE | 2017-09-01 11:03 | Query- Chest Pain ---
Gaudencio Mares Dinah Date:____09/01/16 Piano Technician/CDS:___Marquiseit Phone#:____[phone] Exercise your independent professional judgment when responding to query. Questions asked do not imply a particular answer is desired or expected. We greatly appreciate your clarification on this issue. Clinical Documentation States: 37 year old female was admitted on 08/30/17 The progress note (Dr. Nix 08/31/17) states " 37-year-old -[place] female with past medical history significant for obesity, presented to the emergency department with complaints of not feeling well, fever, cough, sore throat and chest pain. Chest pain - Cardiac enzymes are negative, EKG no STEMI - Stress test was ordered and will be done tomorrow " Please document the etiology of Chest Pain: [ ] Myocardial Infarction [ ] Pneumonia [ ] Mediastinitis [x ] Costochondritis [ ] Pulmonary Embolism [ ] Coronary Artery Disease [ ] GERD [ ] Other: [ ] Comment/Explanation: Present on Admission: [ x] Yes (Y) [ ] Clinically undeterminable (W) [ ] No(N) Please document response in your Progress Notes and/or Discharge Summary and indicate if the condition was present on admission. KHANG
[2017-09-01] MEDS: PERCOCET 5/325 PO PRN (11:15)
[2017-09-01] MEDS ORDERED: LEXISCAN IV ONE ×2 (11:51→11:58)
[2017-09-01 12:51] VITALS: BP 140/85
[2017-09-01] MEDS ORDERED: TYLENOL ONE (12:52)
--- NOTE | 2017-09-01 23:52 | Treadmill Report ---
INDICATIONS FOR PROCEDURE: chest pain. informed consent obtained Rest and stress nuclear cardiac imaging with lexiscan vasodilator stress testing was performed per protocol with the intravenous administration of 0.4 mg of Lexiscan and 10 and 28 mCi of technetium-99m Myoview for the rest and stress imaging respectively. Gated SPECT imaging demonstrates a post-stress left ventricular ejection fraction of 52% with normal wall motion. Myocardial perfusion imaging demonstrates no significant cavity change between stress and rest. No significant stress induced perfusion defects are seen. Nuclear cardiac imaging demonstrates grossly normal post-stress left ventricular systolic function with no significant evidence for myocardial ischemia or necrosis. [facility]# [id number] JAE/RONY QUIÑONEZ
--- NOTE | 2017-09-08 12:16 | Query-Infection ---
Deaglenna Mares____Dinah Date:___09/08/17 Program Developer/CDS: Adrienne / Tk Phone#:__[phone] Exercise your independent professional judgment when responding to this query. Questions asked do not imply a particular answer is desired or expected. We greatly appreciate your clarification on this issue. Clinical Documentation States: 37 year old female was admitted on 08/30/17 The discharge summary (Dr. Nix) states " The patient is a 37-year-old female presenting with chief complaint of chest pain. - Discharge Diagnoses (1) Pneumonitis " Pulse rate: 158 Respiratory rate: 31 Clinical findings show: (please check applicable parameters) Infection, known /suspected, with some of the following indicators; Specify the infection: 3 General parameters [ ] Fever (core temp >38.30C or 100.40F) [ ] Hypothermia (core temp <36C) [ x] Heart rate >90 bpm [x ] Tachypnea: >20 bpm or pCO2 < 32 mmHg [ ] Altered mental status [ ] Significant edema / +ve fluid balance (>20 ml/kg 24 h) [ ] Hyperglycemia (Bl. glucose >110 mg/dl) w/o diabetes Inflammatory parameters [ ] Leukocytosis (white blood cell count >12,000/l) [ ] Leukopenia (white blood cell count <4,000/l) [ ] Bandemia (immature WBC > 10%) [ ] Leucocyte Left Shift [ ] Plasma procalcitonin>2 SD above the normal value Hemodynamic and tissue perfusion parameters [ ] Arterial hypotension(SBP <90 mmHg, MAP <70 mmHg,or a SBP drop >40 mmHg in adults) [ ] Hyperlactatemia (>3 mmol/l) [ ] Anion Gap (> 11mEG/l) [ ] Decreased capillary refill or mottling Organ dysfunction parameters [ ] Arterial hypoxemia (PaO2/FIO2 <300) [ ] Creatinine increase =0.5 mg/dl [ ] Acute oliguria (urine output <0.5 ml | kg |h or 45 mM/l for at least 2 hrs) [ ] Coagulation abnormalities (INR >1.5 or activated partial thromboplastin time >60 s) [ ] Ileus (absent hunter wel sounds) [ ] Thrombocytopenia (platelet count <100,000/l) [ ] Hyperbilirubinemia (plasma total bilirubin >4 mg/dl) According to the clinical indications above, can Bacteremia be further specified? If so, please indicate below and in your Progress Notes and/ or Discharge Summary. Indicate if the condition was present on admission. PHYSICIAN RESPONSE: [x ] Sepsis [ ] Severe Sepsis [ ] Septic Shock [ ] Septicemia [ ] Sepsis now resolved [ ] SIRS due to non-infectious cause with organ dysfunction [ ] SIRS due to non-infectious cause without organ dysfunction [ ] Other: [ ] Comment/Explanation: Present on Admission: [ x] Yes (Y) [ ] Clinically undeterminable (W) [ ] No (N) [ ] Ruled Out Please also document response in your Progress Notes and/or Discharge Summary and indicate if the condition was present on admission Notes: SIRS/ SIRS WITH ORGAN DYSFUNCTION Systemic inflammatory response syndrome (SIRS) generally refers to the systemic response to trauma/escalera or other insult such as Acute Myocardial Infarction, Acute Pancreatitis, and Major Surgery with symptoms including fever, tachycardia , tachypnea, and leukocytosis (1). BACTEREMIA Presence of viable bacteria in the circulating blood (2). This term is reserved for patients that do not manifest above SIRS response. SEPTICEMIA Generally refers to a systemic disease associated with the presence of pathological microorganisms or toxins in the blood, which can include bacteria, viruses, fungi or other organisms (1). SEPSIS Generally refers to SIRS due infection (1). SEVERE SEPSIS Generally refers to sepsis associated with acute organ dysfunction (1). SEPTIC SHOCK Generally refers to circulatory failure associated with severe sepsis (2), and defined as hypotension or hypoperfusion despite adequate fluid resuscitation (1 hour) (3). REFERENCES: 1. [place] [employer]/Society of Critical Care Medicine Consensus Conference. Definitions for sepsis and organ failure and guidelines for the use of innovative therapies in sepsis. Critical Care Med 1992;20:864 - 74. 2. Awais gimenez MM, Alyson MP, Mika MANJIT, Luis Fernando E, Bhargav D, Yang D, Monroe J, Reta SM , Isaiah CANTU, Lisa G; International Sepsis Definitions Conference. 2001 SCCM/ESICM/ACCP/ATS/SIS International Sepsis Definitions Conference. Intensive Care Med. 2002 Apr;29(4):530-8. Epub 2002Nov 25. Review. PubMed PMID:[id number] 3. ICD-9-CM Official Guidelines for Coding and Reporting 4. Medscape Drugs, Diseases and Procedures references 5. [employer] Textbook of Internal Medicine. 18th Edition MTDD
== END 2017-09-01 15:29 | disposition home or self-care (01) | DRG 871 ==
LOC: ED 04:00 → 4A 18:30
PROVIDERS: ADMIT Internal Medicine; ATTEND Internal Medicine
DX: A41.9 Sepsis, unspecified organism (principal); J18.9 Pneumonia, unspecified organism; M94.0 Chondrocostal junction syndrome [Tietze]; Z68.42 Body mass index [BMI] 45.0-49.9, adult; E66.9 Obesity, unspecified; F17.200 Nicotine dependence, unspecified, uncomplicated; Z98.51 Tubal ligation status; Z88.0 Allergy status to penicillin; Z79.899 Other long term (current) drug therapy; Z71.3 Dietary counseling and surveillance
CPT/HCPCS: 36415; 71275; 78452; 80048; 80053; 81001; 82550; 82553; 83036; 84484; 84703; 85025; 87430; 93005; 93010; 93017; 96374; 96375; A9502; J1650; J1956; J2270; J2405; J2785; J7030; Q9967